=== PATIENT | female | born 1975 | race American Indian/Alaskan Native ===

== ENCOUNTER 2018-03-27 22:09 | Emergency (ER) | payer BC ==
[2018-03-27 23:34] LABS: Hematocrit 37.2 % (30.3-42.9); Hemoglobin 12.4 gm/dl (10.1-14.3); Mean Corpuscular HGB Conc 33 % (30-34); Mean Corpuscular Hemoglobin 28 pg (28-32); Mean Corpuscular Volume 84 fl (79-97); Platelet Count 340 K/mm3 (140-440); Red Blood Count 4.41 M/mm3 (3.65-5.03); Red Cell Distribution Width 15.3 % (13.2-15.2)
[2018-03-27 23:47] LABS: INR 0.94 (0.87-1.13)
[2018-03-27 23:48] LABS: Partial Thromboplastin Time 26.8 Sec. (24.2-36.6)
[2018-03-27 23:51] LABS: BUN/Creatinine Ratio 17; Blood Urea Nitrogen 17 mg/dL (7-17); Calcium 9.1 mg/dL (8.4-10.2); Hemolysis Index 2
[2018-03-27 23:55] VITALS: BP 130/90
== END 2018-03-28 03:28 | disposition left against medical advice (07) ==
LOC: ED 22:09
DX: M54.2 Cervicalgia (principal); M79.602 Pain in left arm; Z53.21 Procedure and treatment not carried out due to patient leaving prior to being seen by health care provider
CPT/HCPCS: 36415; 80048; 85027; 85379; 85610; 85730; 93005; 93010